=== PATIENT | female | born 1940 | race Caucasian/White ===

== ENCOUNTER 2024-01-19 09:14 | Emergency (ER) | payer BC, OTHER ==
[2024-01-19] MEDS ORDERED: HYDROCODONE/APAP 5/325 MG TAB ONE (09:57)
[2024-01-19] MEDS ORDERED: TDAP (DIPHTH,PERTUSS(ACELL),TET VAC) 0.5 ML VIAL IMVAC ONE (09:57)
--- NOTE | 2024-01-19 10:17 | RAD REPORT ---
EXAMINATION: CT HEAD WITHOUT CONTRAST CT CERVICAL SPINE WITHOUT CONTRAST CLINICAL INDICATION: Head and neck injury status post fall. Head and neck pain TECHNIQUE: Axial CT images from the skull base to the vertex without intravenous contrast. Axial CT i mages through the cervical spine were obtained without intravenous contrast. Sagittal and coronal reformatted images were created from the data set. Coronal and sagittal reformatted images were creat ed from the data set. One or more of the following dose reduction techniques were used: Automated exposure control, adjustment of the mA and/or kV according to patient size, and/or iterative reconstr uction. Unless otherwise specified, incidental findings do not require dedicated imaging follow-up. [id number]. Comparison: none FINDINGS: Subdural hematoma is present along the anterior interhemispheric fissure extending posteriorly. Thick ness 8 mm. The subdural hematoma extends along the medial aspect of the left tentorium. There is a trace subdural hematoma along the right frontal convexity. Right frontal scalp hematoma is present. Right craniotomy has been performed secondary to drainage of previous subdural hematoma. No hydrocephalus. No shift of midline structures. Moderate low-density areas within periventricular, deep venous and subcortical white matter likely is chemic changes secondary to small vessel disease. Ventricles are normal in caliber. No fracture or dislocation is seen involving the cervical spine. Mild anterior subluxation C3 on C4 and C4 on C5 unchanged from 2009. 7 mm lucency within the dens. IMPRESSION: Acute subdural hematoma along the anterior interhemispheric fissure extending posteriorly to the left tentorium. Trace subdural hematoma along the right frontal convex A cervical fracture is not seen. Submillimeter lucency within the dens probably benign. Follow-up CT in 3 months would be helpful to a ssess stability. of the emergency room was notified at 10:05 AM January 19, 2024
--- NOTE | 2024-01-19 10:24 | RAD REPORT ---
EXAMINATION: CT MAXILLOFACIAL WITHOUT CONTRAST CLINICAL INDICATION: Facial pain status post fall TECHNIQUE: Axial images were obtained through the facial bones and orbits without intravenous contras t. Sagittal and coronal reconstructions were created from the data. One or more of the following dose reduction techniques were used: Automated exposure control, adjustment of the mA and/or kV accor ding to patient size, and/or iterative reconstruction. Unless otherwise specified, incidental findings do not require dedicated imaging follow-up. COMPARISON: No prior exam. FINDINGS: Mildly displaced nasal bone fracture. Right periorbital hematoma. The globes are intact No fluid within the mastoid/sinuses. No TMJ dislocation IMPRESSION: Mildly displaced nasal bone fracture
[2024-01-19 10:36] LABS: Absolute Basophils 0.1 K/uL (0-0.5); Absolute Eosinophils 0.1 K/uL (0-0.5); Absolute Lymphocytes (CBC) 1.7 K/uL (0.7-4.9); Absolute Monocytes 0.7 K/uL (0.1-1.3); Absolute Neutrophil 4.5 K/uL (1.8-8.0); Basophils % 1.4 % (0-1.3); Eosinophils % 1.3 % (0-4.4); Hematocrit 42.8 % (36.0-45.0); Hemoglobin 13.9 g/dL (12.0-15.0); Lymphocytes % 23.6 % (15.3-44.8); MCH 32.2 pg (27.0-35.0); MCHC 32.5 g/dL (32.0-36.0); MCV 99.2 fL (80-100); MPV 7.4 fL (7.6-11.3); Monocytes % 9.9 % (3.3-12.3); Neutrophils % 63.8 % (41.7-73.7); Platelets 461 thou/uL (152-406); RBC Red Blood Cell Count 4.32 M/uL (3.86-4.86); Red Cell Distribution Width 13.4 % (12.1-15.2)
--- NOTE | 2024-01-19 10:50 | RAD REPORT ---
EXAMINATION: CT LUMBAR SPINE WITHOUT CONTRAST CLINICAL INDICATION: Back pain status post fall TECHNIQUE: Axial CT images were obtained through the lumbar spine in soft tissue and bone windows wit hout intravenous contrast. Coronal and Sagittal reformatted images were created from the data set. One or more of the following dose reduction techniques were used: Automated exposure control, adjustm ent of the mA and/ or kV according to patient size, and/or iterative reconstruction. Unless otherwise specified, incidental findings do not require dedicated imaging follow-up. COMPARISON: No prior exam. FINDINGS: Cement has been placed into an old compression fracture T11 vertebral body. Moderate compression deformity L1 vertebral body appears chronic. No acute lumbar fracture seen. Postsurgical changes lower lumbar spine. Mild anterior subluxation L4 on L5 and L5 on S1. Moderate spondylosis lumbar spine. Small right posterior lateral disc herniation L3-4 Cholelithiasis IMPRESSION: An acute lumbar fracture not seen. Small to moderate right posterior lateral disc herniation L3-4 If the patient continues to have symptoms to suggest acute spinal canal pathology then MRI would be r ecommended
[2024-01-19 10:53] LABS: Anion Gap 6.6 mEq/L (5.0-15.0); Potassium 3.6 mEq/L (3.5-5.1)
--- NOTE | 2024-01-19 11:01 | EDPHYS ---
Physician Documentation [facility] Name: Sherri Barnes Age: 83 yrs Sex: Female : 1940 Arrival Date: 01/19/2024 Time: 09:14 Bed 15 Private MD: ED Physician Saran Rivas HPI: 01/18 10:32 This 83 yrs old Female presents to ER via EMS with complaints of Fall Injury. ci 10:32 Patient is an 83-year-old female with PMH rheumatoid arthritis, depression who presents ci to the ED with chief complaint of fall that occurred this morning. Patient tripped and fell. Positive head strike, positive LOC, not on blood thinners. Patient has a laceration to her right forehead and hematoma to the right cheek, bleeding controlled. Patient also complaining of low back pain, reports she fell last week and landed on her buttocks.. Historical: - Allergies: 09:29 No Known Allergies; rs5 - PMHx: 09:29 Rheumatoid arthritis; Depressive disorder; rs5 - PSHx: 09:29 None; rs5 - Immunization history:: Last tetanus immunization: > 10 years ago. - Immunization history: Last tetanus immunization: - up to date. - Infectious Disease History:: Denies. - Social history:: Smoking status: Patient denies any tobacco usage or history of. - History obtained from: daughter. ROS: 10:53 Constitutional: Negative for fever, chills, and weight loss, Eyes: Negative for injury, ci pain, redness, and discharge, ENT: Negative for injury, pain, and discharge, Neck: Negative for injury, pain, and swelling, Cardiovascular: Negative for chest pain, palpitations, and edema, Respiratory: Negative for shortness of breath, cough, wheezing, and pleuritic chest pain, Neuro: Positive for headache. Negative for weakness, numbness, tingling, and seizure, Exam: 10:53 Constitutional: This is a well developed, well nourished patient who is awake, alert, ci and in no acute distress. Head/Face: Normocephalic. Right periorbital hematoma. Right scalp hematoma Eyes: Pupils equal round and reactive to light, extra-ocular motions intact. Lids and lashes normal. Conjunctiva and sclera are non-icteric and not injected. Cornea within normal limits. Periorbital areas with no swelling, redness, or edema. ENT: Nares patent. No nasal discharge, no septal abnormalities noted. Tympanic membranes are normal and external auditory canals are clear. Oropharynx with no redness, swelling, or masses, exudates, or evidence of obstruction, uvula midline. Mucous membranes moist. Neck: Trachea midline, no thyromegaly or masses palpated, and no cervical lymphadenopathy. Supple, full range of motion without nuchal rigidity, or vertebral point tenderness. No Meningismus. Chest/axilla: Normal chest wall appearance and motion. Nontender with no deformity. No lesions are appreciated. Cardiovascular: Regular rate and rhythm with a normal S1 and S2. No gallops, murmurs, or rubs. Normal PMI, no JVD. No pulse deficits. Respiratory: Lungs have equal breath sounds bilaterally, clear to auscultation and percussion. No rales, rhonchi or wheezes noted. No increased work of breathing, no retractions or nasal flaring. Abdomen/GI: Soft, non-tender, with normal bowel sounds. No distension or tympany. No guarding or rebound. No evidence of tenderness throughout. Back: No spinal tenderness. No costovertebral tenderness. Full range of motion. Skin: Warm, dry with normal turgor. Normal color with no rashes, no lesions, and no evidence of cellulitis. MS/ Extremity: Pulses equal, no cyanosis. Neurovascular intact. Full, normal range of motion. Neuro: Awake and alert, GCS 15, oriented to person, place, time, and situation. Cranial nerves II-XII grossly intact. Motor strength 5/5 in all extremities. Sensory grossly intact. Cerebellar exam normal. Normal gait. Vital Signs: 09:28 BP 180 / 109; Pulse 80; Resp 17; Temp 98(O); Pulse Ox 98% on R/A; rs5 11:08 BP 207 / 101; Pulse 79; Resp 18; Pulse Ox 98% on R/A; rs5 11:40 BP 174 / 84; Pulse 74; Resp 17; Pulse Ox 98% on R/A; rs5 12:17 BP 167 / 74; Pulse 70; Resp 17; Pulse Ox 99% on R/A; rs5 Laceration: 12:08 Wound Repair of 4cm ( 1.6in ) subcutaneous laceration to face. Distal ci neuro/vascular/tendon intact. Anesthesia: Wound infiltrated with 5 mls of 1% lidocaine w/ Epi. Wound prep: Simple cleansing with betadine by me. Skin closed with 10 3-0 Prolene using interrupted sutures and sterile technique. Dressed with Bacitracin, non-adherent dressing. Patient tolerated well. MDM: 09:27 Medical Screening Exam initiated ci 09:29 Medical Screening Exam initiated ci 10:53 Differential diagnosis: abrasion, closed head injury, contusion, fracture, laceration, ci Subdural hematoma, hypertensive urgency. Data reviewed: vital signs, nurses notes, lab test result(s), radiologic studies, CT scan. Consideration of Admission/Observation Patient was admitted/placed on observation. Management of patient was discussed with the following: Practice Specialist: Discussed with Dr. Alamo at [facility] for acute subdural hematoma, recommendations to transfer ED to ED. I considered the following discharge prescriptions or medication management in the emergency department Medications were administered in the Emergency Department. See MAR. Independent interpretation of the following test(s) in the Emergency Department CT Scan: My interpretation is . Historians other than the Patient: Daughter/Son: Daughter reports fall. ED course: Presents to the ED for evaluation after a mechanical ground-level fall. Found to have an acute SUBDURAL HEMATOMA and nasal bone fracture. Neurosurgery consulted, discussed case with Dr. Alamo who accepted consult. Patient is noted to be hypertensive with blood pressure 180/109, given IV hydralazine. Will transfer ED to ED [facility]. I have personally spent 60 minutes of critical care time, exclusive of time spent on any procedures, in evaluation and management of this critically ill patient's condition of subdural hematoma. I provided the following critical care treatment intracranial hemorrhage management, blood pressure stabilization. 01/18 10:09 Order name: Basic Metabolic Panel; Complete Time: 11:01 ci 01/18 10:09 Order name: CBC with Diff; Complete Time: 10:36 ci 01/18 10:09 Order name: Type And Screen; Complete Time: 12:08 ci 01/18 09:45 Order name: CT Head C Spine; Complete Time: 10:19 ci 01/18 10:52 Interpretation: Acute SDH. ci 01/18 09:45 Order name: CT Facial Bones W/O Con; Complete Time: 10:36 ci 01/18 10:37 Interpretation: Nasal bone fx. ci 01/18 09:53 Order name: CT Lumbar Spine Wo Con; Complete Time: 10:50 ci 01/18 10:09 Order name: Labs collected and sent; Complete Time: 11:01 ci Administered Medications: 10:15 Drug: HYDROcodone-acetaminophen PO 5 mg-325 mg 1 tabs PO once Route: PO; rs5 11:01 Follow up: Response: No adverse reaction; Pain is decreased rs5 11:00 Not Given (Patient Objection): tetanus-diphtheria toxoidadult 0.5 ml IM once; Provide rs5 Vaccine Information Statement (VIS). 11:01 Drug: Boostrix Tdap IM 0.5 ml IM once; as a single dose Route: IM; Site: left deltoid; rs5 11:30 Follow up: Response: No adverse reaction rs5 11:20 Drug: hydrALAZINE IVP 10 mg IVP once Route: IVP; Site: left antecubital; rs5 11:40 Follow up: Response: No adverse reaction; Blood pressure is lowered rs5 11:21 Not Given (Duplicate Order): hydralazine5 mg IVP once ci 12:31 Drug: Bacitracin Topical Ointment (500 unit/g) 1 application Topical once Route: me1 Topical; Site: affected area; 12:33 Follow up: Response: No adverse reaction me1 Disposition Summary: 01/19/24 11:00 Transfer Ordered Notes: Transfer Location: [facility] ci Reason: Higher level of care ci Condition: Stable ci Problem: new ci Symptoms: are unchanged ci Accepting Physician: Dr. Alamo(01/19/24 12:42) me1 Diagnosis - Fall on same level, unspecified ci - Traumatic subdural hemorrhage ci - Fracture of nasal bones ci Forms: - Medication Reconciliation Form ci - SBAR form ci Critical care time excluding procedures: 10:53 Critical care time: Bedside Care: 30 minutes, Consultation: 10 minutes. Total time: 40 ci minutes Signatures: Dispatcher [employer] Nimesh Deng RN RN rs5 Jaelyn Quiñones RN RN me1 Saran Rivas ci Corrections: (The following items were deleted from the chart) 11:01 11:00 Dr. Alamo ci ci 12:42 11:01 Dr. Alamo ci me1 20:20 10:53 ED course: Presents to the ED for evaluation after a mechanical ground-level ci fall. Found to have an acute subdural hematoma and nasal bone fracture. Neurosurgery consulted, discussed case with Dr. Alamo who accepted consult. Patient is noted to be hypertensive with blood pressure 180/109, given IV hydralazine. Will transfer ED to ED [facility].. ci
--- NOTE | 2024-01-19 11:01 | ER ---
Nurse's Notes [facility] Name: Sherri Barnes Age: 83 yrs Sex: Female : 1940 Arrival Date: 01/19/2024 Time: 09:14 Bed 15 Private MD: Diagnosis: Fall on same level, unspecified;Traumatic subdural hemorrhage;Fracture of nasal bones Presentation: 01/18 09:26 Chief complaint: EMS states: Slipped walking down some steps and fell, positive loc, rs5 witnessed by pedestrian. Pt has a hematoma to right cheek and has a laceration to right forehead, no active bleeding noted. Pt complains of pain to head, right cheek and lower back. 09:26 Acuity: PACO 3 rs5 09:28 Coronavirus screen: At this time, the client does not indicate any symptoms associated rs5 with coronavirus-19. Ebola Screen: No symptoms or risks identified at this time. Initial Sepsis Screen: Does the patient meet any 2 criteria? No. Patient's initial sepsis screen is negative. Does the patient have a suspected source of infection? No. Patient's initial sepsis screen is negative. Risk Assessment: Do you want to hurt yourself or someone else? Patient reports no desire to harm self or others. Onset of symptoms was January 19, 2024. 09:28 Method Of Arrival: EMS: [facility] rs5 Historical: - Allergies: 09:29 No Known Allergies; rs5 - PMHx: 09:29 Rheumatoid arthritis; Depressive disorder; rs5 - PSHx: 09:29 None; rs5 - Immunization history:: Last tetanus immunization: > 10 years ago. - Immunization history: Last tetanus immunization: - up to date. - Infectious Disease History:: Denies. - Social history:: Smoking status: Patient denies any tobacco usage or history of. - History obtained from: daughter. Screenin:30 [facility] ED Fall Risk Assessment (Adult) History of falling in the last 3 months, rs5 including since admission Yes- single mechanical fall (1 pt) Confusion or Disorientation No (0 pts) Intoxicated or Sedated No (0 pts) Impaired Gait Yes (1 pt) Mobility Assist Device Used Yes (1 pt) Altered Elimination No (0 pt) Score/Fall Risk Level 3 or more points = High Risk Oriented to surroundings, Maintained a safe environment. Abuse screen: Denies threats or abuse. Nutritional screening: No deficits noted. Tuberculosis screening: No symptoms or risk factors identified. Assessment: 09:30 General: Appears uncomfortable, Behavior is cooperative. Pain: Complains of pain in rs5 right side of face and head Pain currently is 7 out of 10 on a pain scale. Quality of pain is described as aching, Is continuous. Neuro: Level of Consciousness is awake, alert, obeys commands, Oriented to person, place, time, situation. Cardiovascular: Patient's skin is warm and dry. Respiratory: Airway is patent Respiratory effort is even, unlabored, Respiratory pattern is regular, symmetrical. GI: Abdomen is round non-distended, Abd is soft and non tender X 4 quads. : No signs and/or symptoms were reported regarding the genitourinary system. EENT: No signs and/or symptoms were reported regarding the EENT system. Derm: Skin is intact, Skin is pink, warm \T\ dry. hematoma noted to right cheek, 2 inch laceration noted to right side of forehead, mild active bleeding noted, non adherent dressing applied and wrapped with lily wrap for bleeding control. 09:30 Musculoskeletal: Range of motion: intact in all extremities. rs5 10:01 Reassessment: Patient and/or family updated on plan of care and expected duration. Pain rs5 level reassessed. Patient is alert, oriented x 3, equal unlabored respirations, skin warm/dry/pink. provider at bedside. 11:10 Reassessment: Patient and/or family updated on plan of care and expected duration. Pain rs5 level reassessed. Patient is alert, oriented x 3, equal unlabored respirations, skin warm/dry/pink. 11:15 Reassessment: provider notified of elevated bp. rs5 12:17 Reassessment: Patient and/or family updated on plan of care and expected duration. Pain rs5 level reassessed. Patient is alert, oriented x 3, equal unlabored respirations, skin warm/dry/pink. Vital Signs: 09:28 BP 180 / 109; Pulse 80; Resp 17; Temp 98(O); Pulse Ox 98% on R/A; rs5 11:08 BP 207 / 101; Pulse 79; Resp 18; Pulse Ox 98% on R/A; rs5 11:40 BP 174 / 84; Pulse 74; Resp 17; Pulse Ox 98% on R/A; rs5 12:17 BP 167 / 74; Pulse 70; Resp 17; Pulse Ox 99% on R/A; rs5 ED Course: 09:26 Patient arrived in ED. rs5 09:26 Saran Rivas is Attending Physician. ci 09:28 Triage completed. rs5 09:29 Saran Rivas is Attending Physician. ci 09:30 Patient has correct armband on for positive identification. Placed in gown. Bed in low rs5 position. Call light in reach. Side rails up X2. 09:30 Arm band placed on Patient placed in an exam room. me1 09:30 No provider procedures requiring assistance completed. rs5 09:46 Nimesh Fontanez, RN is Primary Nurse. rs5 10:02 CT Head C Spine In Process Unspecified. EDMS 10:02 CT Facial Bones W/O Con In Process Unspecified. EDMS 10:04 CT Lumbar Spine Wo Con In Process Unspecified. EDMS 10:17 initiated transfer to [facility]. bd 10:52 pt accepted in transfer to [facility] ER by Dr Cervantes admin approval given by Anyi Hart. 11:11 Inserted saline lock: 22 gauge in left forearm, using aseptic technique. Blood bp collected. Flushed with 10 mL NS. 12:14 ems to transport [facility]. bd 12:40 Provided Education on: POC. Verbalized understanding. . me1 12:41 Patient transferred, IV remains in place. me1 Administered Medications: 10:15 Drug: HYDROcodone-acetaminophen PO 5 mg-325 mg 1 tabs PO once Route: PO; rs5 11:01 Follow up: Response: No adverse reaction; Pain is decreased rs5 11:00 Not Given (Patient Objection): tetanus-diphtheria toxoidadult 0.5 ml IM once; Provide rs5 Vaccine Information Statement (VIS). 11:01 Drug: Boostrix Tdap IM 0.5 ml IM once; as a single dose Route: IM; Site: left deltoid; rs5 11:30 Follow up: Response: No adverse reaction rs5 11:20 Drug: hydrALAZINE IVP 10 mg IVP once Route: IVP; Site: left antecubital; rs5 11:40 Follow up: Response: No adverse reaction; Blood pressure is lowered rs5 11:21 Not Given (Duplicate Order): hydralazine5 mg IVP once ci 12:31 Drug: Bacitracin Topical Ointment (500 unit/g) 1 application Topical once Route: me1 Topical; Site: affected area; 12:33 Follow up: Response: No adverse reaction me1 Medication: 12:17 VIS not applicable for this client. rs5 Outcome: 11:00 ER care complete, transfer ordered by MD. ci 12:40 Transferred by ground EMS to [facility], Transfer form completed. me1 12:40 Transferred Note: Report called by BABATUNDE Beavers 12:40 Condition: stable 12:40 Instructed on the need for transfer, 12:42 Patient left the ED. me1 Signatures: Dispatcher [employer] EDMelany Ramírez Brian, RN RN bp Nimesh Fontanez RN RN rs5 Jaelyn Quiñones RN RN me1 Luis Rivascandi ci Corrections: (The following items were deleted from the chart) 09:30 09:28 BP 139 / 81; Pulse 80bpm; Resp 17bpm; Pulse Ox 98% RA; Temp 98F Oral; rs5 rs5
[2024-01-19] MEDS ORDERED: HYDRALAZINE HCL 20 MG/ML VIAL ONE (11:20)
[2024-01-19] MEDS ORDERED: LIDOCAINE 2% W/EPI 1:200,000 MPF 20 ML VIAL IM ONE (11:27)
[2024-01-19] MEDS ORDERED: FENTANYL CITR 100 MCG/2 ML ONE (11:33)
[2024-01-19 12:46] VITALS: TEMP 98
[2024-01-19 12:49] VITALS: BP 167/74; O2SAT 99
== END 2024-01-19 12:42 | disposition short-term general hospital (02) ==
LOC: ER 09:14
DX: S06.5X0A Traumatic subdural hemorrhage without loss of consciousness, initial encounter (principal); S02.2XXA Fracture of nasal bones, initial encounter for closed fracture; W18.30XA Fall on same level, unspecified, initial encounter; M54.50 Low back pain, unspecified
CPT/HCPCS: 12013; 36415; 70450; 70486; 72125; 72131; 76377; 80048; 85025; 86850; 86900; 86901; 96372; 96374; 99285; J0360; J3010